=== PATIENT | female | born 1975 | race Two or more races ===

== ENCOUNTER → 2017-03-29 | Emergency (ER) | payer SELFPAY ==
[~2017-03-29] VITALS: Ht 167.6 cm; Wt 74.8 kg
[~2017-03-29] MED LIST: AMMONIA NASAL INHALATION 1 EA PACK NAS ONE; HALOPERIDOL LACTATE INJ 5 MG/ML VIAL IV ONE; HALOPERIDOL LACTATE INJ 5 MG/ML VIAL ONE; IV NS 0.9% 1,000 ML BAG IV ONE; IV NS 0.9% 1,000 ML ONE; IV SET PRIMARY PUMP SET 1 EA INFUS.SET MC ONE; LORAZEPAM INJ 2 MG/ML VIAL IV ONE; LORAZEPAM INJ 2 MG/ML VIAL ONE
--- NOTE | 2017-03-29 09:45 | NUR ---
PT [facility] [address]: WAS FOUND RUNNING NAKED OUTSIDE,BIZZARE BEHAVIOR. NOTED AGITATED, KICKING, YELLING. MD AT BS FOR EVAL. PT ALERT TO SELF. SAFETY AND COMFORT MEASURES PROVIDED. WILL MONITOR.
--- NOTE | 2017-03-29 10:10 | NUR ---
RESTRAINTS INITIATED PER MD ORDER. SAFETY MEASURES PROVIDED. WILL MONITOR.
[2017-03-29 10:11] LABS: BASOPHILS # (AUTO) 0.4 /CMM (0.0-0.2); EOSINOPHILS # (AUTO) 0.3 /CMM (0.0-0.7); EOSINOPHILS % (AUTO) 3.3 % (0.0-6.0); HEMATOCRIT 38 % (33-45); HEMOGLOBIN 12.5 g/dL (11.5-14.8); LYMPHOCYTES # (AUTO) 1.6 /CMM (0.8-4.8); LYMPHOCYTES % (AUTO) 19.3 % (20.0-44.0); MEAN CORPUSCULAR HEMOGLOBIN 28 PG (26.0-33.0); MEAN CORPUSCULAR HGB CONC 33 g/dl (31.0-36.0); MEAN CORPUSCULAR VOLUME 85 fL (82-100); MONOCYTES # (AUTO) 0.7 /CMM (0.1-1.30); MONOCYTES % (AUTO) 8.9 % (2.0-12.0); NEUTROPHILS # (AUTO) 5.3 /CMM (1.8-8.9); NEUTROPHILS % (AUTO) 63.4 % (43.0-81.0); PLATELET COUNT (AUTO) 487 /CMM (150-450); RDW COEFFICIENT OF VARIATION 13.3 (11.5-15.0); RED BLOOD CELL COUNT(AUTO) 4.42 MIL/uL (4.0-5.2); WHITE BLOOD COUNT (AUTO) 8.3 K/uL (4.3-11.0)
[2017-03-29 10:12] LABS: BASOPHILS % (AUTO) 5.1 % (0.0-2.0)
[2017-03-29 10:15] LABS: CALCIUM, SERUM 8.6 mg/dL (8.5-10.1); CARBON DIOXIDE 28 mmol/L (21-32); CHLORIDE 102 mmol/L (98-107); CREATININE 0.8 mg/dL (0.6-1.3); GFR 79 mL/min (>60); GLUCOSE 105 mg/dL (74-106); POTASSIUM 3.2 mmol/L (3.5-5.1); SODIUM SERUM 137 mmol/L (136-145); UREA NITROGEN, BLOOD 11 mg/dL (7-18)
[2017-03-29 10:21] LABS: ACETAMINOPHEN < 10 ug/ml (10-30); ALANINE AMINOTRANSFERASE 59 U/L (12-78); ALBUMIN 4.1 g/dL (3.4-5.0); ALCOHOL, BLOOD < 3 mg/dL (0-0); ALKALINE PHOSPHATASE 63 U/L (46-116); ASPARTATE AMINOTRANSFERASE 104 U/L (15-37); BILIRUBIN,DIRECT 0.1 mg/dL (0.0-0.2); BILIRUBIN,TOTAL 0.5 mg/dL (0.2-1.0); SALICYLATE 1.4 mg/dL (2.8-20.0); TOTAL PROTEIN, SERUM 7.8 g/dL (6.4-8.2)
--- NOTE | 2017-03-29 10:30 | NUR ---
IV ACCESS STARTED. PT MEDICATED ORDERED.
[2017-03-29 10:37] LABS: EOSINOPHILS % (MANUAL) 3 % (0-4); LYMPHOCYTES % (MANUAL) 25 % (16-48); MONOCYTES % (MANUAL) 5 % (0-11.0); NEUTROPHILS % (MANUAL) 67 (42-76); PLATELET ESTIMATE ADEQUATE
[2017-03-29 11:12] VITALS: BP 115/63
--- NOTE | 2017-03-29 11:15 | NUR ---
Patient is resting comfortably in bed with eyes closed. Easily aroused. VSS
== END | disposition home or self-care (01) ==
LOC: ER 09:34 → EDBD 09:34
DX: R51 Headache (principal); R45.1 Restlessness and agitation
CPT/HCPCS: 36415; 70450-TC; 71010-TC; 80048-TC; 80076-TC; 84703-TC; 85025-TC; A4606; G0480; G6039-TC; J1630; J2060; J7030; Z7610